=== PATIENT | female | born 1940 | race Caucasian/White ===

== ENCOUNTER → 2018-11-04 10:19 | Outpatient (CLI) | payer MEDICARE ==
--- NOTE | 2018-11-08 08:49 | EC ---
PATIENT:MARGARITO SANCHEZ DATE OF SERVICE: 11/04/18 SEX: F MEDICAL RECORD: [id number] DATE OF : 42 [facility]GE [facility]: 78 ADMISSION DATE: 11/04/18 REFERRING PHYSICIAN: INTERPRETING PHYSICIAN: MARY ORTEGA MD ECHOCARDIOGRAM REPORT ECHO CHARGES 4 ECHO COMPLETE Date: 11/04/18 CLINICAL DIAGNOSIS: A-FIB ECHOCARDIOGRAPHIC MEASUREMENTS (adult normal given) AC root (d.<3.7cm) 2.8 cm LV Septum d (<1.2 cm> 0.9 cm Valve Excursion 1.7 cm LV Septum (systole) 1.4 cm Left Atria (s.<4.0cm> 5.3 cm LVPW d(<1.2cm) 1.0 cm RV (d.<2.3cm) 2.4 cm LVPW (sytole) 1.7 cm LV diastole(<5.6CM) 5.4 cm MV E-F(>70mm/sec) cm LV systole 3.3 cm LVOT Diameter 1.5 cm MV exc.(>10mm) cm Est.ejection fraction (50-75%) % DOPPLER: LVIT cm/sec A cm/sec E 106 cm/sec LA cm/sec RVSP 46.0 mmHg LVOT 89.0 cm/sec AOP1/2T m/s Asc. Ao 134 cm/sec RVOT 57.0 cm/sec RA cm/sec PA 76.0 cm/sec AV Gradient Peak 7.2 mmHg AV Mean 3.5 mmHg AV Area 1.3 cm MV Gradient Peak 6.5 mmHg MV Mean 2.0 mmHg MV Area cm COMMENTS: OP - HC Casing Wringer Operator: Ayana GARCIAOE Shank Inspector: 3 Dr. Jj TAPE# PACS Pericardial Effusion N DATE OF SERVICE: 11/04/2018 Adequate 2-D echo, color-flow and spectral Doppler, and M-mode. No LVH. LV internal dimensions are normal. Wall motion is normal. EF greater than 55%. Aortic valve is tricuspid. No evidence of stenosis by Doppler interrogation. Left atrium is dilated at 5.3 cm. Mitral valve shows no prolapse. [id number]-[id number] MR. Right-sided chambers are normal. Moderate TR. TRANSINT:[id number] Voice Confirmation ID: [id number] DOCUMENT ID: [id number] ECHOCARDIOGRAM REPORT [id number] MARGARITO SANCHEZ,MARY Soto MD at 0849 CC: [id number] DICTATION DATE: 11/07/18 1444 SPEECH LANG PATH: 11/07/18 1531 DEP CLI 11/04/18 [place] [id number] [place] [id number]
== END | disposition home or self-care (01) ==
LOC: D.HCCARDIO 10:19
DX: I48.91 Unspecified atrial fibrillation (principal)

== ENCOUNTER → 2019-11-22 10:42 | Outpatient (CLI) | payer OTHER ==
--- NOTE | ~2019-11-22 | EC ---
PATIENT:MARGARITO SANCHEZ DATE OF SERVICE: 11/22/19 SEX: F MEDICAL RECORD: [id number] DATE OF : 42 [facility]GE [facility]: 79 ADMISSION DATE: 11/22/19 REFERRING PHYSICIAN: INTERPRETING PHYSICIAN: MARY ORTEGA MD ECHOCARDIOGRAM REPORT ECHO CHARGES 4 ECHO COMPLETE Date: 11/22/19 CLINICAL DIAGNOSIS: A-FIB ECHOCARDIOGRAPHIC MEASUREMENTS (adult normal given) AC root (d.<3.7cm) 2.7 cm LV Septum d (<1.2 cm> 1.1 cm Valve Excursion 1.8 cm LV Septum (systole) 1.5 cm Left Atria (s.<4.0cm> 5.2 cm LVPW d(<1.2cm) 1.2 cm RV (d.<2.3cm) 2.4 cm LVPW (sytole) 1.8 cm LV diastole(<5.6CM) 5.5 cm MV E-F(>70mm/sec) cm LV systole 3.4 cm LVOT Diameter 1.7 cm MV exc.(>10mm) cm Est.ejection fraction (50-75%) % DOPPLER: LVIT cm/sec A cm/sec E 109 cm/sec LA cm/sec RVSP 39.2 mmHg LVOT 88.0 cm/sec AOP1/2T m/s Asc. Ao 138 cm/sec RVOT 71.0 cm/sec RA cm/sec PA 104 cm/sec AV Gradient Peak 7.7 mmHg AV Mean 4.0 mmHg AV Area 1.4 cm MV Gradient Peak 5.6 mmHg MV Mean 1.8 mmHg MV Area cm COMMENTS: OP - HC Business Continuity Global Director: 1 ROOSEVELT GARCIAOE Automatic Engraver: 3 Dr. Jj TAPE# PACS Pericardial Effusion N DATE OF SERVICE: Adequate 2D, color flow imaging, spectral Doppler, and M-Mode. DESCRIPTION OF PROCEDURE: Borderline LVH. LV internal dimension is normal. Wall motion is normal. EF is greater than or equal to 55%. Aortic valve is tricuspid. No evidence of stenosis by Doppler interrogation. Trivial AI by color flow imaging. Left atrium is dilated at 5.2 cm. Mitral valve shows no prolapse. Moderate MR. Right-sided chambers are grossly normal. Moderate TR. ECHOCARDIOGRAM REPORT [id number] MARGARITO SANCHEZ TRANSINT:[id number] Voice Confirmation ID: [id number] DOCUMENT ID: [id number] MARY ORTEGA MD CC: [id number] DICTATION DATE: 11/23/191413 CRIB TENDER: 11/23/191910 DEP CLI 11/22/[address] [facility] [address] [place] [address]
== END | disposition home or self-care (01) ==
LOC: D.HCCECHO 10:00
PROVIDERS: ATTEND Internal Medicine Interventional Cardiology
DX: I10 Essential (primary) hypertension (principal)